=== PATIENT | male | born 1995 | race Asian ===

== ENCOUNTER 2017-06-10 10:48 | Emergency (ER) | payer OTHER ==
[~2017-06-10] VITALS: Ht 181.6 cm; Wt 65.3 kg
[2017-06-10 10:51] VITALS: TEMP 36.5; Ht 181.6 cm; Wt 65.3 kg
[2017-06-10] MEDS ORDERED: TRIMETHOPRIM/POLYMYXIN B OPR STA (11:35)
--- NOTE | 2017-06-10 11:46 | EMERGENCY ROOM VISIT NOTE ---
ED Visit Note First contact with patient: 11:02 CHIEF COMPLAINT: Both eyes feel irritated HISTORY OF PRESENT ILLNESS: 21-year-old male presents the ER with chief complaint of getting something in his right eye yesterday when he was outside. He states it feels like there is something in his eye. He states it feels itchy and irritated. He denies any drainage from the eye or any visual changes. He also states that he has noticed a yellow lump on the inside of his left lower eyelid which bothers him when he moves his eye. It is not painful. He denies any visual changes in the left eye. REVIEW OF SYSTEMS: Head: 6 system review was performed and was negative unless stated otherwise in history of present illness. PMH: The patient is healthy; there is no significant medical or surgical history. SOCIAL HISTORY: Patient is a college student. The patient denies any tobacco or alcohol use. PHYSICAL EXAM: Vital Signs: Were reviewed Reviewed Nurse's notes. GENERAL: 21- year-old male appears in no acute distress. MENTAL Status: Alert and oriented 3. EYES: The pupils are round, equal, and react to light. EOMs are full. No injection or drainage is noted from either eye. The right eye there is no foreign body visible under athe eyelid even after lid eversion. Slit lamp exam revealed No foreign body was seen embedded in the cornea. The cornea was clear and no hyphema was seen. Fluorescein uptake was not observed with ultraviolet light. There is no foreign body noted in the left eye. There is a palpable lump just inferior to the edge of the lower eyelid. There is also a small yellow pustule on the inside associated with the palpable mass which is nontender. EMERGENCY DEPARTMENT COURSE: The fluorescein was irrigated away . One Polytrim eyedrop was placed into the right eye. The patient was discharged home in stable condition. DIAGNOSIS: Right eye irritation Chalazion left eye DISCHARGE INSTRUCTIONS AND TREATMENT: Warm compresses to the left eye frequently as much as possible over the next 4-5 days. Polytrim eyedrops 1 drop into the right eye every 3 hours while awake for 5-7 days. Wash hands frequently. If symptoms do not resolve in either eye recommend follow-up with Dr. Campos, ophthalmology. Current/Historical Medications No Active Prescriptions or Reported Meds Allergies Coded Allergies: No Known Allergies (Unverified , 06/10/17) Vital Signs Date Time Temp Pulse Resp B/P (MAP) Pulse Ox O2 Delivery O2 Flow Rate FiO2 06/10/17 10:51 36.5 67 16 131/82 98 Room Air Departure Information Prescriptions No Active Prescriptions or Reported Meds Referrals No Doctor, Assigned (PCP) Patient Instructions [facility]
[2017-06-10 11:53] VITALS: BP 131/82; PULSE 67; O2SAT 98
== END 2017-06-10 11:53 | disposition home or self-care (01) ==
LOC: C.EDB 10:52 → C.EDD 11:53
DX: H57.9 Unspecified disorder of eye and adnexa (principal); H00.16 Chalazion left eye, unspecified eyelid